=== PATIENT | female | born 1980 | race Two or more races ===

== ENCOUNTER 2019-09-02 11:12 | Emergency (ER) | payer MEDICAID ==
[~2019-09-02] VITALS: Ht 152.4 cm; Wt 54.5 kg
[2019-09-02 11:20] VITALS: BP 125/78
[2019-09-02 12:05] LABS: BASO # 0.1 x10^3/uL (0.0-0.2); BASO % 1 % (0-3); EOS # 0.3 x10^3/uL (0.0-0.7); EOS % 4 % (0-3); HEMATOCRIT 35.9 % (36.0-47.0); HEMOGLOBIN 12.5 g/dL (12.0-15.5); LYMPH # 1.7 x10^3/uL (1.0-4.8); LYMPH % 24 % (24-48); MEAN CORPUSCULAR HEMOGLOBIN 31 pg (25-35); MEAN CORPUSCULAR HGB CONC 35 g/dL (31-37); MEAN CORPUSCULAR VOLUME 89 fL (79-100); MONO # 0.4 x10^3/uL (0.0-1.1); MONO % 5 % (0-9); NEUT # 4.8 x10^3/uL (1.8-7.7); NEUT % 67 % (31-73); PLATELET COUNT 239 x10^3/uL (140-400); RED BLOOD COUNT 4.03 x10^6/uL (3.50-5.40); RED CELL DISTRIBUTION WIDTH 12.6 % (11.5-14.5); WHITE BLOOD COUNT 7.3 x10^3/uL (4.0-11.0)
[2019-09-02 12:19] LABS: CALCIUM 8.7 mg/dL (8.5-10.1); CREATININE 0.7 mg/dL (0.6-1.0); GFR 94.2; POTASSIUM 3.7 mmol/L (3.5-5.1)
[2019-09-02 12:25] LABS: ALBUMIN 3.7 g/dL (3.4-5.0); TOTAL BILIRUBIN 0.4 mg/dL (0.2-1.0); TOTAL PROTEIN 7.4 g/dL (6.4-8.2)
[2019-09-02 12:42] LABS: BILIRUBIN,URINE NEGATIVE (NEG); CLARITY,URINE CLEAR; COLOR,URINE AMBER; NITRITE,URINE NEGATIVE (NEG); PROTEIN,URINE NEGATIVE (NEG-TRACE); UROBILINOGEN,URINE 0.2 mg/dL (0.2 mg/dL)
[2019-09-02 13:27] LABS: SQUAMOUS EPITHELIAL CELL,UR MOD /LPF
[2019-09-02 13:28] LABS: BACTERIA,URINE FEW /HPF (0-FEW); RBC,URINE 0 /HPF (0-2)
[2019-09-02] MEDS ORDERED: HYDR50SY PO (13:40)
[2019-09-02] MEDS ORDERED: ONDA4TAB7 PO (13:40)
--- NOTE | 2019-09-02 14:27 | RAD ---
EXAM: Chest, 2 views. HISTORY: Chest pain. COMPARISON: None. FINDINGS: 2 views of the chest are obtained. There is suspected bilateral lower lobe atelectasis or interstitial infiltrate. There is no consolidation, pleural effusion or pneumothorax. The heart is normal in size. IMPRESSION: Bilateral lower lobe atelectasis or interstitial infiltrate. Electronically signed by: Lakisha Amaya MD (09/02/2019 2:24 PM) [facility]
--- NOTE | 2019-09-02 14:53 | EKG ---
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
--- NOTE | 2019-09-02 15:18 | PHYS DOC ---
Past Medical History Past Medical History: No Pertinent History Past Surgical History: No Surgical History Smoking Status: Never Smoker Alcohol Use: None General Adult EDM: Chief Complaint: Insomnia HPI: HPI: Patient is a 38 year old female who presents with insomnia. Patient states for the last three weeks she has not gotten more than 2-4 hours of sleep every night. She states when she lays down she starts feeling her heart go fast and then gets shortness of breath. She denies any chest pain, abdominal pain, shor tness of breath during the day, current palpitations, swelling, fever, chills. She has had some nausea in the morning when she wakes up. She sleeps lightly and wakes up to any noise. This is atypical for her. She has not tried anything at home. Review of Systems: Review of Systems: General: Denies fever, chills, sweats, fatigue Eyes: Denies drainage, blurred vision HENT: Denies rhinorrhea, sore throat Respiratory: Denies cough, shortness of breath, wheezing Cardiac: Denies edema, palpitations, chest pain GI: Denies abdominal pain. Reports N/V MSK: Denies back pain, neck pain Skin: Denies rash, jaundice Neuro: Denies headache, dizziness Psychiatric: Denies SI/HI reports insomnia Heart Score: Risk Factors: Risk Factors: DM, Current or recent (<one month) smoker, HTN, HLP, family history of CAD, obesity. Risk Scores: Score 0 - 3: 2.5% MACE over next 6 weeks - Discharge Home Score 4 - 6: 20.3% MACE over next 6 weeks - Admit for Clinical Observation Score 7 - 10: 72.7% MACE over next 6 weeks - Early Invasive Strategies Allergies: Allergies: Allergies Coded Allergies Type Severity Reaction Last Updated Verified No Known Drug Allergies 09/02/19 No Physical Exam: PE: Constitutional: Well developed, well nourished, Cooperative, NAD, non-toxic appearing HEENT: Normocephalic, atraumatic, oropharynx moist, EOMI, PERRL, no drainage from eyes, normal conjunctiva Neck: Supple, normal range of motion, no stridor Cardiovascular: RRR, 2+ radial pulses bilaterally, no edema Respiratory: CTA bilaterally, no respiratory distress, no wheezing/crackles Abdomen: Soft, nontender, nondistended, no masses Skin: Warm, dry, intact Extremities: No obvious deformities Neurologic: Alert and Oriented x3, motor and sensory function grossly normal, no focal deficits Psychologic: Normal affect, normal judgment, normal mood. No SI/HI Current Patient Data: Labs: Laboratory Tests Test 09/02/19 11:25 09/02/19 11:33 09/02/19 11:55 Urine Collection Type Unknown Urine Color [place] Urine Clarity Clear Urine pH 6.0 (<5.0-8.0) Urine Specific [place] >=1.030 (1.000-1.030) Urine Protein Negative mg/dL (NEG-TRACE) Urine Glucose (UA) Negative mg/dL (NEG) Urine Ketones (Stick) Negative mg/dL (NEG) Urine Blood Negative (NEG) Urine Nitrite Negative (NEG) Urine Bilirubin Negative (NEG) Urine Urobilinogen Dipstick 0.2 mg/dL (0.2 mg/dL) Urine Leukocyte Esterase Negative (NEG) Urine RBC 0 /HPF (0-2) Urine WBC 1-4 /HPF (0-4) Urine Squamous Epithelial Cells Mod /LPF Urine Bacteria Few /HPF (0-FEW) Urine Mucus Marked /LPF POC Urine HCG, Qualitative Hcg negative (Negative) White Blood Count 7.3 x10^3/uL (4.0-11.0) Red Blood Count 4.03 x10^6/uL (3.50-5.40) Hemoglobin 12.5 g/dL (12.0-15.5) Hematocrit 35.9 % (36.0-47.0) L Mean Corpuscular Volume 89 fL (79-100) Mean Corpuscular Hemoglobin 31 pg (25-35) Mean Corpuscular Hemoglobin Concent 35 g/dL (31-37) Red Cell Distribution Width 12.6 % (11.5-14.5) Platelet Count 239 x10^3/uL (140-400) Neutrophils (%) (Auto) 67 % (31-73) Lymphocytes (%) (Auto) 24 % (24-48) Monocytes (%) (Auto) 5 % (0-9) Eosinophils (%) (Auto) 4 % (0-3) H Basophils (%) (Auto) 1 % (0-3) Neutrophils # (Auto) 4.8 x10^3/uL (1.8-7.7) Lymphocytes # (Auto) 1.7 x10^3/uL (1.0-4.8) Monocytes # (Auto) 0.4 x10^3/uL (0.0-1.1) Eosinophils # (Auto) 0.3 x10^3/uL (0.0-0.7) Basophils # (Auto) 0.1 x10^3/uL (0.0-0.2) Sodium Level 141 mmol/L (136-145) Potassium Level 3.7 mmol/L (3.5-5.1) Chloride Level 106 mmol/L (98-107) Carbon Dioxide Level 26 mmol/L (21-32) Anion Gap 9 (6-14) Blood Urea Nitrogen 13 mg/dL (7-20) Creatinine 0.7 mg/dL (0.6-1.0) Estimated GFR (Cockcroft-Gault) 94.2 BUN/Creatinine Ratio 19 (6-20) Glucose Level 105 mg/dL (70-99) H Calcium Level 8.7 mg/dL (8.5-10.1) Total Bilirubin 0.4 mg/dL (0.2-1.0) Aspartate Amino Transferase (AST) 12 U/L (15-37) L Alanine Aminotransferase (ALT) 17 U/L (14-59) Alkaline Phosphatase 32 U/L (46-116) L Total Protein 7.4 g/dL (6.4-8.2) Albumin 3.7 g/dL (3.4-5.0) Albumin/Globulin Ratio 1.0 (1.0-1.7) Thyroid Stimulating Hormone (TSH) 0.616 uIU/mL (0.358-3.74) Laboratory Tests 09/02/19 11:55 Laboratory Tests 09/02/19 11:55 Vital Signs: Vital Signs Date Time Temp Pulse Resp B/P (MAP) Pulse Ox O2 Delivery O2 Flow Rate FiO2 09/02/19 11:20 98.2 88 18 125/78 (94) 96 Room Air 98.2 EKG: EKG: [] Radiology/Procedures: Radiology/Procedures: [] Course & Med Decision Making: Course & Med Decision Making Pertinent Labs and Imaging studies reviewed. (See chart for details) Patient is a 38-year-old female who presents to the emergency room complaining of insomnia and nausea in the morning. Patient is overall well-appearing. She does not have any tachycardia or hypoxia here in the emergency room. Chest x- ray shows atelectasis. EKG is normal. Labs were ordered including CBC, BMP, troponin, UA, TSH. Work-up was unremarkable. It is likely that she is having anxiety at night. Will prescribe her Zofran and hydroxyzine to help with her nausea and insomnia. I have given them resources to follow-up with primary care. She will return to the emergency room if she has sustained shortness of breath and palpitations. Patient's test results and vitals while in the ED were fully reviewed and discussed with the patient. Patient is stable and at this time does not need admission to the hospital. We have discussed strict return precautions and the importance of following up with their Primary Care Physician. Patient stated understanding and was given an opportunity to ask any questions. Dragon Disclaimer: Dragon Disclaimer: This electronic medical record was generated, in whole or in part, using a voice recognition dictation system. Departure Departure Impression: Primary Impression: Insomnia Disposition: 01 HOME, SELF-CARE Patient Instructions: Insomnia-Brief, Gastroesophageal Reflux Disease, Adult, Kbfc-ab-Qkcy Scripts Ondansetron Hcl (ZOFRAN) 4 Mg Tablet 1 TAB PO PRN Q6-8HRS for nausea, #12 TAB Prov: JOHN MILLS MD 09/02/19 Hydroxyzine HCl (Hydroxyzine HCl) 50 Mg/25 Ml Syrup 50 MG PO QHS for 30 Days, #30 MISC Prov: JOHN MILLS MD 09/02/19 Justicifation of Admission Dx: Justifications for Admission: Justification of Admission Dx: No JOHN MILLS MD Sep 02, 2019 15:18
== END 2019-09-02 14:50 | disposition home or self-care (01) ==
LOC: ER 11:12
DX: G47.00 Insomnia, unspecified (principal); R11.2 Nausea with vomiting, unspecified
CPT/HCPCS: 36415; 71046; 80053; 81001; 81025; 84443; 85025; 93005; 99285

== ENCOUNTER 2019-12-27 19:16 | Emergency (ER) | payer MEDICAID ==
[~2019-12-27] VITALS: Ht 154.9 cm; Wt 51.3 kg
[~2019-12-27 19:16] MED LIST: HYDR50SY PO; ONDA4TAB7 PO
--- NOTE | 2019-12-27 20:04 | RAD ---
EXAM: CHEST ONE VIEW. HISTORY: Chest pain, shortness of breath, headache. COMPARISON: 09/02/2019. FINDINGS: A frontal view of the chest is obtained. There are no confluent infiltrates. There is no pneumothorax or pleural effusion. The heart is not enlarged. IMPRESSION: 1. No confluent infiltrates. Electronically signed by: Diego Jasso MD (12/27/2019 8:01 PM) [facility]
[2019-12-27 20:26] VITALS: BP 115/77
--- NOTE | 2019-12-27 20:26 | PHYS DOC ---
Past Medical History Past Medical History: No Pertinent History Past Surgical History: No Surgical History Smoking Status: Never Smoker Alcohol Use: None General Adult EDM: Chief Complaint: CHEST PAIN HPI: HPI: Patient is a 29-year-old female who presented to ER with body aches, flulike symptom, chills, headache, chest pain, nonproductive cough for several days. Patient has been taking ibuprofen at home but did not get better so she came here for evaluation. Patient is not a smoker, not on any blood pressure medication or diabetic. Denied history of heart problem. Patient is not sure if she been exposed to anybody who tested positive for COVID-19. Review of Systems: Review of Systems: Constitutional: Positive for fever or chills. [] Eyes: Denies change in visual acuity. [] HENT: Denies nasal congestion or sore throat. [] Respiratory: Positive for cough or shortness of breath. [] Cardiovascular: Positive for chest pain, no edema. [] GI: Denies abdominal pain, nausea, vomiting, bloody stools or diarrhea. [] : Denies dysuria. [] Musculoskeletal: Positive for back pain or joint pain. [] Integument: Denies rash. [] Neurologic: Denies headache, focal weakness or sensory changes. [] Endocrine: Denies polyuria or polydipsia. [] Lymphatic: Denies swollen glands. [] Psychiatric: Denies depression or anxiety. [] Heart Score: Risk Factors: Risk Factors: DM, Current or recent (<one month) smoker, HTN, HLP, family history of CAD, obesity. Risk Scores: Score 0 - 3: 2.5% MACE over next 6 weeks - Discharge Home Score 4 - 6: 20.3% MACE over next 6 weeks - Admit for Clinical Observation Score 7 - 10: 72.7% MACE over next 6 weeks - Early Invasive Strategies Allergies: Allergies: Allergies Coded Allergies Type Severity Reaction Last Updated Verified No Known Drug Allergies 09/02/19 No Physical Exam: PE: Constitutional: Well developed, well nourished, no acute distress, non-toxic appearance. [] HENT: Normocephalic, atraumatic, bilateral external ears normal, oropharynx moist, no oral exudates, nose normal. [] Eyes: PERRLA, EOMI, conjunctiva normal, no discharge. [] Neck: Normal range of motion, no tenderness, supple, no stridor. [] Cardiovascular:Heart rate regular rhythm, no murmur [] Lungs & Thorax: Bilateral breath sounds clear to auscultation [] Abdomen: Bowel sounds normal, soft, no tenderness, no masses, no pulsatile masses. [] Skin: Warm, dry, no erythema, no rash. [] Back: No tenderness, no CVA tenderness. [] Extremities: No tenderness, no cyanosis, no clubbing, ROM intact, no edema. [] Neurologic: Alert and oriented X 3, normal motor function, normal sensory function, no focal deficits noted. [] Psychologic: Affect normal, judgement normal, mood normal. [] Current Patient Data: Vital Signs: Vital Signs Date Time Temp Pulse Resp B/P (MAP) Pulse Ox O2 Delivery O2 Flow Rate FiO2 12/27/19 19:25 98.4 77 20 124/80 (95) 98 Room Air 98.4 EKG: EKG: EKG was done at 1926, heart rate of 73 bpm, sinus rhythm, no ST segment elevation. Radiology/Procedures: Radiology/Procedures: [][facility] [address] [place] [address] IMAGING REPORT Signed PATIENT: GIOVANI MUÑOZ ACCOUNT: [id number] : 1980 LOCATION: ER AGE: 39 SEX: F EXAM STATUS: REG ER ORD. PHYSICIAN: QUINN MARQUEZ DO REASON: chest pain, soa, headache x3 days PROCEDURE: CHEST AP ONLY EXAM: CHEST ONE VIEW. HISTORY: Chest pain, shortness of breath, headache. COMPARISON: 09/02/2019. FINDINGS: A frontal view of the chest is obtained. There are no confluent infiltrates. There is no pneumothorax or pleural effusion. The heart is not enlarged. IMPRESSION: 1. No confluent infiltrates. Electronically signed by: Diego Jasso MD (12/27/2019 8:01 PM) [facility] DICTATED and SIGNED BY: HARMAN JASSO MD DATE: 12/27/192000 Course & Med Decision Making: Course & Med Decision Making Pertinent Labs and Imaging studies reviewed. (See chart for details) Patient is a 29-year-old female who presented to ER with body aches, flulike symptom, chills, headache, chest pain, nonproductive cough for several days. Patient has been taking ibuprofen at home but did not get better so she came h ere for evaluation. Patient is not a smoker, not on any blood pressure medication or diabetic. Denied history of heart problem. Patient is not sure if she been exposed to anybody who tested positive for COVID-19. Chest x-ray did not show any acute problem, EKG did not show any ST segment elevation. It is unlikely that her chest pain is cardiac in nature. Patient was tested for COVID-19, result pending at this time. Patient will be discharged home with COVID-19 instruction. Patient is amenable to plan of care. Dragon Disclaimer: Debbie Disclaimer: This electronic medical record was generated, in whole or in part, using a voice recognition dictation system. Departure Departure Impression: Primary Impression: Viral syndrome Additional Impression: Person under investigation for COVID-19 Disposition: 01 DC HOME SELF CARE/HOMELESS Condition: STABLE Referrals: NO PCP (PCP) Patient Instructions: Viral Syndrome Additional Instructions: You have been tested for or diagnosed with COVID-19. It is an infection caused by a new type of coronavirus. COVID-19 will cause cold-like or mild flu symptoms in most. It can cause more severe symptoms like problems breathing in some. There is no treatment for COVID-19. The body will clear the infection over time. Self-care will help to ease discomfort. Steps to Take: Self-Care Rest as needed. Healthy habits may help you feel better. Steps include: Choose healthy foods including fruits and vegetables. Drink water throughout the day. Get plenty of sleep each night. If you smoke, try to quit. It may ease breathing. Avoid alcohol. Keep Others Healthy The virus can spread to others. Droplets are released every time you sneeze or cough. The droplets can get into the mouth, nose, or eyes of people near you and lead to infection. To lower the chances of spreading COVID-19 to others: Stay at home until your doctor has said it is safe to leave. If you tested positive this will mean staying isolated until both of the following are true: At least 7 days have passed since the start of illness. You are free of fever for at least 72 hours without the use of medicine. During this time: - Avoid public areas, events, or transportation. Do not return to work or school until your doctor has said it is safe to do so. - Call ahead if you need to go to a medical center. Let them know you may have COVID-19. It will help them guide you where to go. They may also ask you to wear a facemask when you come to the office. - If you call for emergency medical services, let them know you may have COVID- 19. While at home: - Try to avoid close contact with others. Stay about 6 feet away. - If possible, spend most of your time in a separate room from others. - Use a face mask if you will be in close contact with others such as sharing a room or vehicle. - Have someone wipe down common surfaces in the home. Use household phone technician every day on areas like doorknobs, counters, or sinks. - Cough or sneeze into a tissue. Throw the tissue away right after use. If a tissue is not available, cough or sneeze into your elbow. - Wash your hands often. Wash them after sneezing or coughing. Use soap and water and wash for at least 20 seconds. Alcohol based hand kettle cleaner can be used if soap and water is not available. - Do not prepare food for others. Avoid sharing personal items like forks, spoons, or toothbrushes. - Avoid close contact with pets while you are sick. There is no evidence of the virus passing to pets. This is a safety step until more is known about this virus. Isolation can be frustrating. Social interaction can help. Keep in touch with friends and family through phone and tech options. You can still interact with others in y our home, just keep a safe distance of about 6 feet. Follow-up: Your doctors office will check in with you to see if there are any changes in your health. You may be asked to keep track of symptoms to share with them. They will also let you know when you are clear to be in public again. Problems to Look Out For: Contact your doctor if your recovery is not going as you expect. Get emergency care if you have problems such as: - Trouble breathing - Nonstop chest pain or pressure - Changes in awareness, confusion, or problems waking - Lips or face have bluish color - Worsening of symptoms If you think you have an emergency, call for emergency medical services right away. As taken from [facility] QUINN MARQUEZ DO Dec 27, 2019 20:26
--- NOTE | 2019-12-28 06:12 | EKG ---
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
--- NOTE | 2019-12-29 13:42 | NUR ---
IP: Informed pt of negative COVID test, Pt verbalized understanding.
== END 2019-12-27 20:35 | disposition home or self-care (01) ==
LOC: ER 19:16
DX: B34.9 Viral infection, unspecified (principal); Z20.828 Contact with and (suspected) exposure to other viral communicable diseases
CPT/HCPCS: 71045; 93005; 99285; C9803; U0003

== ENCOUNTER 2020-03-06 10:39 | Emergency (ER) | payer MEDICAID ==
[~2020-03-06] VITALS: Ht 152.4 cm; Wt 103.0 kg
[2020-03-06] MEDS ORDERED: KETOROLAC 60 MG/2 ML VIAL. IM ONE (11:15)
--- NOTE | 2020-03-06 11:23 | EKG ---
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
[2020-03-06] MEDS ORDERED: KETOROLAC 30 MG/ML VIAL. IVP ONE (11:30)
[2020-03-06 11:46] LABS: BASO # 0.1 x10^3/uL (0.0-0.2); BASO % 1 % (0-3); EOS # 0.2 x10^3/uL (0.0-0.7); EOS % 2 % (0-3); HEMATOCRIT 36.8 % (36.0-47.0); HEMOGLOBIN 12.8 g/dL (12.0-15.5); LYMPH # 1.9 x10^3/uL (1.0-4.8); LYMPH % 17 % (24-48); MEAN CORPUSCULAR HEMOGLOBIN 31 pg (25-35); MEAN CORPUSCULAR HGB CONC 35 g/dL (31-37); MEAN CORPUSCULAR VOLUME 90 fL (79-100); MONO # 0.6 x10^3/uL (0.0-1.1); MONO % 5 % (0-9); NEUT # 8.7 x10^3/uL (1.8-7.7); NEUT % 76 % (31-73); PLATELET COUNT 242 x10^3/uL (140-400); RED CELL DISTRIBUTION WIDTH 13.2 % (11.5-14.5); WHITE BLOOD COUNT 11.5 x10^3/uL (4.0-11.0)
[2020-03-06 11:53] LABS: CREATININE 0.7 mg/dL (0.6-1.0); GFR 93.6
[2020-03-06 12:01] LABS: ALBUMIN 3.8 g/dL (3.4-5.0); ALBUMIN/GLOBULIN RATIO 1.1 (1.0-1.7); TOTAL BILIRUBIN 0.5 mg/dL (0.2-1.0); TOTAL PROTEIN 7.3 g/dL (6.4-8.2)
--- NOTE | 2020-03-06 12:02 | RAD ---
Chest radiograph 03/06/2020 11:34 AM INDICATION: Chest pain COMPARISON: 12/27/2019 TECHNIQUE: Frontal and lateral views of the chest are provided. FINDINGS: The cardiomediastinal silhouette is within normal limits. Low lung volumes eccentric pulmonary vascul ature. There are no pleural effusions. There is no pulmonary vascular congestion. There is no pneumothorax. The lungs are clear. No significant osseous abnormality is identified. IMPRESSION: No acute cardiopulmonary process. Electronically signed by: Nilam Yost MD (03/06/2020 12:00 PM) [id number]
--- NOTE | 2020-03-06 12:11 | PHYS DOC ---
Past Medical History Past Medical History: No Pertinent History Past Surgical History: No Surgical History Smoking Status: Never Smoker Alcohol Use: None General Adult EDM: Chief Complaint: CHEST PAIN HPI: HPI: Patient is a 39 year old female presents to the emergency department with complaints of chest pain with radiation to her low back for the past 3 months. Patient speaks Panamanian, used house net developer contract phone for interpretation of HPI, physical examination, discharge instructions. Per net developer contract, patient states that she has been seen recently for the same chest pain that radiates to her low back 2 weeks ago at the [facility] along with several times prior. Stating that she was told that she has musculoskeletal pain, chest wall pain, and that it was not a serious problem. Patient reports being on Depo-Provera, and has irregular periods, her last period was December 122019. Patient reports having a COVID-19 test negative on February 26. Patient reports that she has 5 family members at home she lives with and no one is experiencing the same illnesses that she. Patient denies any injury to her chest or back, states that she works at home. Patient denies any recent fever, chills, congestion, shortness of breath, tingling of her extremities, nausea, vomiting, diarrhea, abdominal pains. Patient denies any STI concerns. Patient reports a negative family history stating that both her mother and father are healthy. Patient denies smoking cigarettes, illicit drug use, or alcohol consumption. Review of Systems: Review of Systems: 14 body systems of review of systems have been reviewed. See HPI for pertinent positives and negative responses, otherwise all other systems are negative, nonpertinent or noncontributory. Heart Score: HEART Score for Chest Pain: HEART Score for Chest Pain Response (Comments) Value History Slighlty/Non-Suspicious 0 ECG Normal 0 Age < 45 0 Risk Factors No Risk Factors 0 Troponin < Normal Limit 0 Total 0 Risk Factors: Risk Factors: DM, Current or recent (<one month) smoker, HTN, HLP, family history of CAD, obesity. Risk Scores: Score 0 - 3: 2.5% MACE over next 6 weeks - Discharge Home Score 4 - 6: 20.3% MACE over next 6 weeks - Admit for Clinical Observation Score 7 - 10: 72.7% MACE over next 6 weeks - Early Invasive Strategies Family History: Family History: Patient denies a significant family history stating both her mother and father are healthy. Current Medications: Current Medications Medications (Trade) Dose Ordered Sig/Bam Start Time Stop Time Status Last Admin Dose Admin Ketorolac Tromethamine (Toradol 30mg Vial) 30 mg 1X ONCE 03/06/20 11:30 03/06/20 11:31 DC 03/06/20 11:31 30 MG Ketorolac Tromethamine (Toradol Im) 60 mg 1X ONCE 03/06/20 11:15 03/06/20 11:21 DC Allergies: Allergies: Allergies Coded Allergies Type Severity Reaction Last Updated Verified No Known Drug Allergies 09/02/19 No Physical Exam: PE: Constitutional: Well developed, well nourished, no acute distress, non-toxic appearance. HENT: Normocephalic, atraumatic, bilateral external ears normal, oropharynx moist, no oral exudates, nose normal. Eyes: PERRLA, EOMI, conjunctiva normal, no discharge. Neck: Normal range of motion, no tenderness, supple, no stridor. Cardiovascular:Heart rate regular rhythm, no murmur Lungs & Thorax: Bilateral breath sounds clear to auscultation Abdomen: Bowel sounds normal, soft, no tenderness, no masses, no pulsatile masses. Skin: Warm, dry, no erythema, no rash. Back:, no CVA tenderness. Extremities: No tenderness, no cyanosis, no clubbing, ROM intact, no edema. Neurologic: Alert and oriented X 3, normal motor function, normal sensory function, no focal deficits noted. Psychologic: Affect normal, judgement normal, mood normal. Musculoskeletal: Reproducible pain under left breast, sternum, bilateral lumbar area, no midline spinal tenderness. No sciatica type pain exhibited. Distal cap refill less 2 seconds, +2/4 pulses. Current Patient Data: Labs: Laboratory Tests Test 03/06/20 11:20 03/06/20 11:24 03/06/20 11:25 Urine Collection Type Unknown Urine Color Yellow Urine Clarity Clear Urine pH 7.0 Urine Specific [place] 1.010 Urine Protein Negative mg/dL Urine Glucose (UA) Negative mg/dL Urine Ketones (Stick) Negative mg/dL Urine Blood Negative Urine Nitrite Negative Urine Bilirubin Negative Urine Urobilinogen Dipstick 0.2 mg/dL Urine Leukocyte Esterase Negative Urine RBC 0 /HPF Urine WBC 0 /HPF Urine Squamous Epithelial Cells Mod /LPF Urine Bacteria Few /HPF Bedside Urine HCG, Qualitative Hcg negative White Blood Count 11.5 x10^3/uL Red Blood Count 4.10 x10^6/uL Hemoglobin 12.8 g/dL Hematocrit 36.8 % Mean Corpuscular Volume 90 fL Mean Corpuscular Hemoglobin 31 pg Mean Corpuscular Hemoglobin Concent 35 g/dL Red Cell Distribution Width 13.2 % Platelet Count 242 x10^3/uL Neutrophils (%) (Auto) 76 % Lymphocytes (%) (Auto) 17 % Monocytes (%) (Auto) 5 % Eosinophils (%) (Auto) 2 % Basophils (%) (Auto) 1 % Neutrophils # (Auto) 8.7 x10^3/uL Lymphocytes # (Auto) 1.9 x10^3/uL Monocytes # (Auto) 0.6 x10^3/uL Eosinophils # (Auto) 0.2 x10^3/uL Basophils # (Auto) 0.1 x10^3/uL Sodium Level 141 mmol/L Potassium Level 4.0 mmol/L Chloride Level 104 mmol/L Carbon Dioxide Level 27 mmol/L Anion Gap 10 Blood Urea Nitrogen 17 mg/dL Creatinine 0.7 mg/dL Estimated GFR (Cockcroft-Gault) 93.6 BUN/Creatinine Ratio 24 Glucose Level 100 mg/dL Calcium Level 9.0 mg/dL Magnesium Level 2.0 mg/dL Total Bilirubin 0.5 mg/dL Aspartate Amino Transf (AST/SGOT) 26 U/L Alanine Aminotransferase (ALT/SGPT) 42 U/L Alkaline Phosphatase 42 U/L Troponin I Quantitative < 0.017 ng/mL Total Protein 7.3 g/dL Albumin 3.8 g/dL Albumin/Globulin Ratio 1.1 Lipase 117 U/L Current Medications Medications (Trade) Dose Ordered Sig/Bam Route PRN Reason Start Time Stop Time Status Last Admin Dose Admin Ketorolac Tromethamine (Toradol Im) 60 mg 1X ONCE IM 03/06/20 11:15 03/06/20 11:21 DC Ketorolac Tromethamine (Toradol 30mg Vial) 30 mg 1X ONCE IVP 03/06/20 11:30 03/06/20 11:31 DC 03/06/20 11:31 Laboratory Tests Test 03/06/20 11:24 03/06/20 11:25 POC Urine HCG, Qualitative Hcg negative (Negative) White Blood Count 11.5 x10^3/uL (4.0-11.0) H Red Blood Count 4.10 x10^6/uL (3.50-5.40) Hemoglobin 12.8 g/dL (12.0-15.5) Hematocrit 36.8 % (36.0-47.0) Mean Corpuscular Volume 90 fL (79-100) Mean Corpuscular Hemoglobin 31 pg (25-35) Mean Corpuscular Hemoglobin Concent 35 g/dL (31-37) Red Cell Distribution Width 13.2 % (11.5-14.5) Platelet Count 242 x10^3/uL (140-400) Neutrophils (%) (Auto) 76 % (31-73) H Lymphocytes (%) (Auto) 17 % (24-48) L Monocytes (%) (Auto) 5 % (0-9) Eosinophils (%) (Auto) 2 % (0-3) Basophils (%) (Auto) 1 % (0-3) Neutrophils # (Auto) 8.7 x10^3/uL (1.8-7.7) H Lymphocytes # (Auto) 1.9 x10^3/uL (1.0-4.8) Monocytes # (Auto) 0.6 x10^3/uL (0.0-1.1) Eosinophils # (Auto) 0.2 x10^3/uL (0.0-0.7) Basophils # (Auto) 0.1 x10^3/uL (0.0-0.2) Sodium Level 141 mmol/L (136-145) Potassium Level 4.0 mmol/L (3.5-5.1) Chloride Level 104 mmol/L (98-107) Carbon Dioxide Level 27 mmol/L (21-32) Anion Gap 10 (6-14) Blood Urea Nitrogen 17 mg/dL (7-20) Creatinine 0.7 mg/dL (0.6-1.0) Estimated GFR (Cockcroft-Gault) 93.6 BUN/Creatinine Ratio 24 (6-20) H Glucose Level 100 mg/dL (70-99) H Calcium Level 9.0 mg/dL (8.5-10.1) Magnesium Level 2.0 mg/dL (1.8-2.4) Total Bilirubin 0.5 mg/dL (0.2-1.0) Aspartate Amino Transferase (AST) 26 U/L (15-37) Alanine Aminotransferase (ALT) 42 U/L (14-59) Alkaline Phosphatase 42 U/L (46-116) L Total Protein 7.3 g/dL (6.4-8.2) Albumin 3.8 g/dL (3.4-5.0) Albumin/Globulin Ratio 1.1 (1.0-1.7) Lipase 117 U/L (73-393) Laboratory Tests 03/06/20 11:25 Laboratory Tests 03/06/20 11:25 Vital Signs: Vital Signs Date Time Temp Pulse Resp B/P (MAP) Pulse Ox O2 Delivery O2 Flow Rate FiO2 03/06/20 10:50 98.2 106 16 126/91 (103) 98 Room Air 98.2 EKG: EKG: EKG performed by ED nursing staff at 1048 shows normal sinus rhythm without ectopy heart rate of 96 bpm, ND interval 0.128, QTc interval 0.443, no acute STEMI, no ACS, no acute ischemia noted, EKG interpreted by ED attending Dr. Tinoco. Radiology/Procedures: Radiology/Procedures: STATUS: REG ER ORD. PHYSICIAN: RUBÉN WOODWARD APRN REASON: chest pain PROCEDURE: CHEST PA & LATERAL Chest radiograph 03/06/2020 11:34 AM INDICATION: Chest pain COMPARISON: 12/27/2019 TECHNIQUE: Frontal and lateral views of the chest are provided. FINDINGS: The cardiomediastinal silhouette is within normal limits. Low lung volumes eccentric pulmonary vasculature. There are no pleural effusions. There is no pulmonary vascular congestion. There is no pneumothorax. The lungs are clear. No significant osseous abnormality is identified. IMPRESSION: No acute cardiopulmonary process. Electronically signed by: Rk Yost MD (03/06/2020 12:00 PM) [id number] DICTATED and SIGNED BY: RK YOST MD DATE: 03/06/20 [id number] 0 Course & Med Decision Making: Course & Med Decision Making Pertinent Labs and Imaging studies reviewed. (See chart for details) 39-year-old female vital signs stable, physical examination concerning for chest wall pain, musculoskeletal pain, nontraumatic lumbar pain. There was no saddle anesthesia, no numbness or tingling or neurovascular changes to the patient's extremities. Patient [id number], [place] net developer contract per [employer] net developer contract service. Negative cardiac work-up, her urine was not infected, she is not , [facility] radiologist interpreted chest x-ray negative for acute process. Patient was given 30 mg IV Toradol, reexamination patient reports helped her pain some. Discussed with patient no acute findings, most likely musculoskeletal pain, will treat at home with prescription for ibuprofen, follow-up with her doctor soon, return to the emergency department for worsening concerns. Debbie Disclaimer: Debbie Disclaimer: This electronic medical record was generated, in whole or in part, using a voice recognition dictation system. Departure Departure Impression: Primary Impression: Chest wall pain Additional Impression: Lumbago Qualified Codes: M54.5 - Low back pain Disposition: 01 DC HOME SELF CARE/HOMELESS Condition: GOOD Referrals: NO PCP (PCP) Patient Instructions: Chest Wall Pain Additional Instructions: Please take medications as prescribed, follow-up with your doctor soon regarding your chronic pains, return to the emergency department for worsening symptoms or other concerns. EMERGENCY DEPARTMENT GENERAL DISCHARGE INSTRUCTIONS Thank you for coming to [facility] Emergency Department (ED) today and trusting us with you care. We trust that you had a positive experience in our Emergency Department. If you wish to speak to the department management, you may call the Director at [phone]. YOUR FOLLOW UP INSTRUCTIONS ARE FOLLOWS: 1. Do you have a private Doctor? If you do not have a private doctor, please ask for a resource list of physicians or clinics that may be able to assist you with follow up care. 2. The Emergency Physicain has interpreted your x-rays. The X-Ray specialist will also review them. If there is a change in the findings, you will be notified in 48 hours when at all possible. 3. A lab test or culture has been done, your results will be reviewed and you will be notified if you need a change in treatment. ADDITIONAL INSTRUCTIONS AND INFORMATION: 1. Your care today has been supervised by a physician who is specially trained in emergency care. Many problems require more than one evaluation for a complete diagnosis and treatment. We recommend that you schedule your follow up appointment as recommended to ensure complete treatment of you illness or injury. If you are unable to obtain follow up care and continue to have a problem, or if your condition worsens, we recommend that you return to the ED. 2. We are not able to safely determine your condition over the phone nor are we able to give sound medical advice over the phone. For these safety reasons, if you call for medical advice we will ask you to come to the ED for further evaluation. 3. If you have any questions regarding these discharge instructions please call the ED at [phone]. SAFETY INFORMATION: In the interest of safety, wellness, and injury prevention; we encourage you to wear your sealbelt, if you smoke; quite smoking, and we encourage family to use a protective helmet for bicycling and other sporting events that present an increased risk for head injury. IF YOUR SYMPTOMS WORSEN OR NEW SYMPTOMS DEVELOP, OR YOU HAVE CONCERNS ABOUT YOUR CONDITION; OR IF YOUR CONDITION WORSENS WHILE YOU ARE WAITING FOR YOUR FOLLOW UP APPOINTMENT; EITHER CONTACT YOUR PRIMARY CARE DOCTOR, THE PHYSICIAN WHOSE NAME AND NUMBER YOU WERE GIVEN, OR RETURN TO THE ED IMMEDIATELY. Scripts Cyclobenzaprine Hcl (CYCLOBENZAPRINE HCL) 10 Mg Tablet 10 MG PO TID for LOW BACK SPASMS, #15 TAB 0 Refills Prov: RUBÉN WOODWARD APRN 03/06/20 Ibuprofen (IBUPROFEN) 600 Mg Tablet 600 MG PO PRN Q6HRS PRN for INFLAMMATION, #20 TAB 0 Refills Prov: RUBÉN WOODWARD APRN 03/06/20 RUBÉN WOODWARD APRN Mar 06, 2020 12:11
[2020-03-06 12:22] LABS: BILIRUBIN,URINE NEGATIVE (NEG); CLARITY,URINE CLEAR; COLOR,URINE YELLOW; NITRITE,URINE NEGATIVE (NEG); PROTEIN,URINE NEGATIVE (NEG-TRACE); UROBILINOGEN,URINE 0.2 mg/dL (0.2 mg/dL)
[2020-03-06 12:37] LABS: BACTERIA,URINE FEW /HPF (0-FEW); RBC,URINE 0 /HPF (0-2); WBC,URINE 0 /HPF (0-4)
[2020-03-06] MEDS ORDERED: IBUP-1007 PO (12:54)
[2020-03-06] MEDS ORDERED: CYCL10TA2 PO (12:54)
[2020-03-06 15:24] VITALS: BP 129/72
== END 2020-03-06 15:44 | disposition home or self-care (01) ==
LOC: ER 10:39
DX: R07.89 Other chest pain (principal); M54.5 Low back pain; M79.10 Myalgia, unspecified site
CPT/HCPCS: 36415; 71046; 80053; 81001; 81025; 83690; 83735; 84484; 85025; 93005; 96374; 99285; J1885

== ENCOUNTER 2020-04-16 07:03 | Emergency (ER) | payer MEDICAID ==
[~2020-04-16] VITALS: Ht 152.4 cm; Wt 57.0 kg
[~2020-04-16 07:03] MED LIST changes: +CYCL10TA2 PO; +IBUP-1007 PO
--- NOTE | 2020-04-16 07:24 | PHYS DOC ---
Past Medical History Past Medical History: No Pertinent History Past Surgical History: No Surgical History Smoking Status: Never Smoker Alcohol Use: None General Adult EDM: Chief Complaint: DIZZY/LIGHT HEADED HPI: HPI: 39-year-old female with no significant past medical history presents the ED with multiple complaints, c/o of sternal chest pain that radiates to her back and has been present for the past 4 months. Also reports of headedness and dizziness, w orsened with positions that started last night, no associated difficulties ambulating. Denies any alcohol or drug use. No history of head or neck injury. No history of Covid, DVT or PEs. Patient also reports she has not had a period in over a year. Review of Systems: Review of Systems: Constitutional: Denies fever or chills. [] Eyes: Denies change in visual acuity. [] HENT: Denies nasal congestion or sore throat. [] Respiratory: Denies cough or shortness of breath. [] Cardiovascular: Denies edema or syncope GI: Denies abdominal pain, nausea, vomiting, bloody stools or diarrhea. [] : Denies dysuria. [] Musculoskeletal: Denies back pain or joint pain. [] Integument: Denies rash. [] Neurologic: Denies headache, neck stiffness, focal weakness or sensory changes. [] Endocrine: Denies polyuria or polydipsia. [] Lymphatic: Denies swollen glands. [] Psychiatric: Denies depression or anxiety. [] Heart Score: HEART Score for Chest Pain: HEART Score for Chest Pain Response (Comments) Value History Slighlty/Non-Suspicious 0 ECG Normal 0 Age < 45 0 Risk Factors No Risk Factors 0 Troponin < Normal Limit 0 Total 0 Risk Factors: Risk Factors: DM, Current or recent (<one month) smoker, HTN, HLP, family history of CAD, obesity. Risk Scores: Score 0 - 3: 2.5% MACE over next 6 weeks - Discharge Home Score 4 - 6: 20.3% MACE over next 6 weeks - Admit for Clinical Observation Score 7 - 10: 72.7% MACE over next 6 weeks - Early Invasive Strategies Allergies: Allergies: Allergies Coded Allergies Type Severity Reaction Last Updated Verified No Known Drug Allergies 09/02/19 No Physical Exam: PE: Constitutional: Well developed, well nourished, no acute distress, non-toxic appearance. HENT: Normocephalic, atraumatic, Eyes: EOMI, conjunctiva normal, no discharge, perrla, horizontal nystagmus worse when looking to the left on physical exam Neck: Normal range of motion, supple, Cardiovascular: S1/2 present, regular rhythm Lungs & Thorax: Speaking in full sentences, bilateral equal chest rise, no t achypnea or increased work of breathing Abdomen: soft, no tenderness, Skin: Warm, dry, no erythema, no rash. [] Back: No tenderness, no CVA tenderness. [] Extremities: No tenderness, no cyanosis, no edema Neurologic: Alert and oriented X 3, normal motor function, normal sensory function, no focal deficits noted, no ataxia, normal fnf/manpreet, cn2-12 intact Psychologic: Affect normal, judgement normal, mood normal. [] HINTS exam performed with active persistent vertigo. Exam negative for central pathology. Pt with no vertical nystagmus (horizontal nystagmus and lack of nystagmus consistent with peripheral vertigo), normal corrective saccade with head impulse test and no skew deviation. Current Patient Data: Labs: Laboratory Tests Test 04/16/20 07:12 POC Urine HCG, Qualitative Hcg negative (Negative) EKG: EKG: Sinus rhythm at 97 bpm, left axis deviation, normal intervals, T wave inversion lead III, no ST elevations or ST depressions Radiology/Procedures: Radiology/Procedures: IMAGING REPORT Signed PATIENT: GIOVANI MUÑOZ ACCOUNT: [id number] : 1980 LOCATION: ER AGE: 39 SEX: F EXAM STATUS: REG ER ORD. PHYSICIAN: HARJIT TEE DO REASON: dizzy PROCEDURE: PORTABLE CHEST 1V EXAM: CHEST 1 VIEW History: Dizziness COMPARISON: 03/06/2020. TECHNIQUE: Single portable radiograph of the chest FINDINGS: The cardiac silhouette is unremarkable. The lungs are clear bilaterally. The costophrenic sulci are clear and well demarcated. IMPRESSION: No radiographic evidence of an acute cardiopulmonary process. Electronically signed by: Ho Hunter MD (04/16/2020 7:40 AM) [id number] DICTATED and SIGNED BY: HO HUNTER MD DATE: 04/16/20 [id number] IMAGING REPORT Signed PATIENT: GIOVANI MUÑOZ ACCOUNT: [id number] : 1980 LOCATION: ER AGE: 39 SEX: F EXAM STATUS: REG ER ORD. PHYSICIAN: HARJIT TEE DO REASON: Chest pain to back, R/o PE PROCEDURE: CT ANGIOGRAPHY CHEST EXAM: CT angiography of the chest with intravenous contrast. HISTORY: Chest pain. TECHNIQUE: Computed tomographic images of the chest were obtained following the administration of intravenous contrast according to angiography protocol. Multiplanar reformatting was performed and three dimensional maximum intensity projection images were obtained. *One or more of the following individualized dose reduction techniques were utilized for this examination: 1. Automated exposure control. 2. Adjustment of the mA and/or kV according to patient size. 3. Use of iterative reconstruction technique. COMPARISON: None. FINDINGS: There is no pulmonary embolism. The heart is normal in size. The aorta is normal in caliber. There is a common origin of the right innominate and left common carotid arteries, a normal arch branching variant. There is soft tissue within the anterior mediastinum, likely due to residual thymus. This is not within limits to suggest thymic hyperplasia or rebound. There are prominent right hilar lymph nodes. There is no pneumothorax or pleural effusion. There is posterior dependent and basilar atelectasis. The 3 mm and 4 mm nodules within the right major fissure and there are 3 mm and 2 mm nodules in the left major fissure, the appearance of which favors fissural lymph nodes. There is no acute finding involving the upper abdomen or osseous structures. IMPRESSION: 1. No evidence of pulmonary embolism. 2. Prominent right hilar lymph nodes. These may be physiologic or reactive in etiology. 3. Tiny nodules within the pleural fissures measuring up to 4 mm, the appearance of which favors a benign fissural lymph nodes. Follow-up can be performed in one year if there are risk factors for pulmonary neoplasm. Electronically signed by: Lakisha Lee MD (04/16/2020 9:19 AM) [facility] DICTATED and SIGNED BY: LAKISHA LEE MD DATE: 04/16/20 [id number] 0 Course & Med Decision Making: Course & Med Decision Making Pertinent Labs and Imaging studies reviewed. (See chart for details) Concern for chronic chest pain - i do suspect some anxiety component. Positional vertigo that fatigued in the ED, resolved with meclizine/Valium. test negative. Patient very well-appearing. Will discharge home with strict ED return precautions were given for chest pain, increased work of breathing or neurologic deficits. Encouraged urgent outpatient follow-up with PMD to establish routine, preventative care. Life-threatening processes were considered but are low suspicion at this time, given history, physical exam and ED workup. Pt was educated on all prescription medications and adverse effects. All patient's questions were answered and pt was stable at time of discharge. Life/limb-threatening differential includes but is not limited to, cerebrovascular accident, cerebellar stroke, acute coronary syndrome, carbon monoxide poisoning or other toxidrome, syncope differential including cardiac arrhythmia/PE/aortic aneurysm or dissection/ACS, Gu[place]an [place] syndrome, thyroid disease, infection, central and peripheral vertigo, intracranial hemorrhage, vertebrobasilar insufficiency, heat stroke, electrolyte disorder, rheumatologic or autoimmune disorder I spoken with the patient and her caregivers. I explained the patient's condition, diagnoses and treatment plan based on the information available to me at this time. I have answered the patient and her caregiver's questions and addressed any concerns. The patient and her caregivers have a good understanding of patient's diagnosis, condition and treatment plan as can be expected at this point. Vital signs have been stable. Patient's condition is stable and appropriate for discharge from the emergency department. Patient will pursue further outpatient evaluation with primary care physician or other designated or consulting physician as outlined in the discharge ins tructions. The patient and/or caregivers are agreeable to this plan of care and follow-up instructions have been explained in detail. The patient and/or caregivers have received these instructions in written form and have expressed an understanding of the discharge instructions. The patient and/or caregivers are aware that any significant change of condition or worsening of symptoms should prompt immediate return to this or the closest emergency department or call to 911. Debbie Disclaimer: Debbie Disclaimer: This electronic medical record was generated, in whole or in part, using a voice recognition dictation system. Departure Departure Impression: Primary Impression: Dizziness Additional Impressions: Chest pain Amenorrhea Disposition: 01 DC HOME SELF CARE/HOMELESS Condition: STABLE Referrals: NO PCP (PCP) FOLLOW UP WITH FAMILY MEDICINE: Family Medicine Address: [address] [place] [address] Patient Instructions: Chest Pain (Nonspecific), Dizziness Additional Instructions: FOLLOW UP WITH [employer] TENDER: [facility] Address: [address] [place] [address] EMERGENCY DEPARTMENT GENERAL DISCHARGE INSTRUCTIONS Thank you for coming to [facility] Emergency Department (ED) today and trusting us with you care. We trust that you had a positive experience in our Emergency Department. If you wish to speak to the department management, you may call the Director at [phone]. YOUR FOLLOW UP INSTRUCTIONS ARE FOLLOWS: 1. Do you have a private Doctor? If you do not have a private doctor, please ask for a resource list of physicians or clinics that may be able to assist you with follow up care. 2. The Emergency Physicain has interpreted your x-rays. The X-Ray specialist will also review them. If there is a change in the findings, you will be notified in 48 hours when at all possible. 3. A lab test or culture has been done, your results will be reviewed and you will be notified if you need a change in treatment. ADDITIONAL INSTRUCTIONS AND INFORMATION: 1. Your care today has been supervised by a physician who is specially trained in emergency care. Many problems require more than one evaluation for a complete diagnosis and treatment. We recommend that you schedule your follow up appointment as recommended to ensure complete treatment of you illness or injury. If you are unable to obtain follow up care and continue to have a problem, or if your condition worsens, we recommend that you return to the ED. 2. We are not able to safely determine your condition over the phone nor are we able to give sound medical advice over the phone. For these safety reasons, if you call for medical advice we will ask you to come to the ED for further evaluation. 3. If you have any questions regarding these discharge instructions please call the ED at [phone]. SAFETY INFORMATION: In the interest of safety, wellness, and injury prevention; we encourage you to wear your sealbelt, if you smoke; quite smoking, and we encourage family to use a protective helmet for bicycling and other sporting events that present an increased risk for head injury. IF YOUR SYMPTOMS WORSEN OR NEW SYMPTOMS DEVELOP, OR YOU HAVE CONCERNS ABOUT YOUR CONDITION; OR IF YOUR CONDITION WORSENS WHILE YOU ARE WAITING FOR YOUR FOLLOW UP APPOINTMENT; EITHER CONTACT YOUR PRIMARY CARE DOCTOR, THE PHYSICIAN WHOSE NAME AND NUMBER YOU WERE GIVEN, OR RETURN TO THE ED IMMEDIATELY. Scripts Meclizine Hcl (MECLIZINE HCL) 25 Mg Tablet 1 TAB PO TID for dizziness, #20 TAB Prov: HARJIT TEE DO 04/16/20 HRAJIT TEE DO Apr 16, 2020 07:24
[2020-04-16 07:35] LABS: BASO % 1 % (0-3); EOS # 0.2 x10^3/uL (0.0-0.7); EOS % 3 % (0-3); HEMATOCRIT 37.1 % (36.0-47.0); HEMOGLOBIN 12.8 g/dL (12.0-15.5); LYMPH # 1.6 x10^3/uL (1.0-4.8); LYMPH % 23 % (24-48); MEAN CORPUSCULAR HEMOGLOBIN 31 pg (25-35); MEAN CORPUSCULAR HGB CONC 35 g/dL (31-37); MEAN CORPUSCULAR VOLUME 90 fL (79-100); MONO # 0.4 x10^3/uL (0.0-1.1); MONO % 5 % (0-9); NEUT # 4.7 x10^3/uL (1.8-7.7); NEUT % 68 % (31-73); PLATELET COUNT 214 x10^3/uL (140-400); RED BLOOD COUNT 4.12 x10^6/uL (3.50-5.40); RED CELL DISTRIBUTION WIDTH 12.5 % (11.5-14.5); WHITE BLOOD COUNT 6.9 x10^3/uL (4.0-11.0)
[2020-04-16 07:38] LABS: BILIRUBIN,URINE NEGATIVE (NEG); CLARITY,URINE CLEAR; COLOR,URINE YELLOW; NITRITE,URINE NEGATIVE (NEG); PH,URINE 7.5 (<5.0-8.0); PROTEIN,URINE NEGATIVE (NEG-TRACE); UROBILINOGEN,URINE 0.2 mg/dL (0.2 mg/dL)
[2020-04-16 07:45] LABS: AMPHETAMINE/METHAMPHETAMINE NEG (NEG); BARBITURATES NEG (NEG); BENZODIAZEPINES NEG (NEG); CANNABINOIDS NEG (NEG); COCAINE NEG (NEG); METHADONE NEG (NEG); OPIATES NEG (NEG); PHENCYCLIDINE NEG (NEG)
[2020-04-16 07:46] LABS: CREATININE 0.7 mg/dL (0.6-1.0); GFR 93.6; POTASSIUM 3.7 mmol/L (3.5-5.1)
[2020-04-16 07:52] LABS: ALBUMIN 3.8 g/dL (3.4-5.0); ALBUMIN/GLOBULIN RATIO 1.2 (1.0-1.7); TOTAL BILIRUBIN 0.6 mg/dL (0.2-1.0)
--- NOTE | 2020-04-16 07:52 | RAD ---
EXAM: CHEST 1 VIEW History: Dizziness COMPARISON: 03/06/2020. TECHNIQUE: Single portable radiograph of the chest FINDINGS: The cardiac silhouette is unremarkable. The lungs are clear bilaterally. The costophrenic sulci are clear and well demarcated. IMPRESSION: No radiographic evidence of an acute cardiopulmonary process. Electronically signed by: Ho Hunter MD (04/16/2020 7:40 AM) [id number]
[2020-04-16 07:59] LABS: BACTERIA,URINE FEW /HPF (0-FEW); RBC,URINE OCC /HPF (0-2); WBC,URINE OCC /HPF (0-4)
[2020-04-16] MEDS ORDERED: IOHEXOL 350 MG/ML 100 ML VIAL. IV ONE (09:00)
[2020-04-16] MEDS ORDERED: CONTRAST GIVEN. MC PRN (09:00)
--- NOTE | 2020-04-16 09:31 | RAD ---
EXAM: CT angiography of the chest with intravenous contrast. HISTORY: Chest pain. TECHNIQUE: Computed tomographic images of the chest were obtained following the administration of int ravenous contrast according to angiography protocol. Multiplanar reformatting was performed and three dimensional maximum intensity projection images were obtained. *One or more of the following individualized dose reduction techniques were utilized for this examina tion: 1. Automated exposure control. 2. Adjustment of the mA and/or kV according to patient size. 3. Use of iterative reconstruction technique. COMPARISON: None. FINDINGS: There is no pulmonary embolism. The heart is normal in size. The aorta is normal in caliber . There is a common origin of the right innominate and left common carotid arteries, a normal arch br anching variant. There is soft tissue within the anterior mediastinum, likely due to residual thymus. This is not within limits to suggest thymic hyperplasia or rebound. There are prominent right hilar lymph nodes. There is no pneumothorax or pleural effusion. There is posterior dependent and basilar a telectasis. The 3 mm and 4 mm nodules within the right major fissure and there are 3 mm and 2 mm nodu les in the left major fissure, the appearance of which favors fissural lymph nodes. There is no acute finding involving the upper abdomen or osseous structures. IMPRESSION: 1. No evidence of pulmonary embolism. 2. Prominent right hilar lymph nodes. These may be physiologic or reactive in etiology. 3. Tiny nodules within the pleural fissures measuring up to 4 mm, the appearance of which favors a be nign fissural lymph nodes. Follow-up can be performed in one year if there are risk factors for pulmo nary neoplasm. Electronically signed by: Lakisha Amaya MD (04/16/2020 9:19 AM) [facility]
[2020-04-16] MEDS ORDERED: diazePAM 5 MG TABLET PO ONE (10:00)
[2020-04-16] MEDS ORDERED: MECLIZINE HCL 12.5 MG TABLET. PO ONE (10:00)
[2020-04-16] MEDS ORDERED: MECL-75 PO (11:01)
[2020-04-16 11:13] VITALS: BP 108/75
--- NOTE | 2020-04-17 04:47 | EKG ---
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
== END 2020-04-16 11:25 | disposition home or self-care (01) ==
LOC: ER 07:03
DX: N91.2 Amenorrhea, unspecified (principal); R42 Dizziness and giddiness; R07.2 Precordial pain; M54.6 Pain in thoracic spine
CPT/HCPCS: 36415; 71045; 71275; 80053; 80307; 81001; 81025; 84443; 84484; 85025; 85379; 93005; 99285; J8597; Q9967